=== PATIENT | female | born 1945 | race Caucasian/White ===

== ENCOUNTER 2019-09-16 07:55 | Day surgery (SDC) | payer MEDICARE, OTHER ==
[~2019-09-16] VITALS: Ht 172.7 cm; Wt 96.1 kg
[2019-09-16] MEDS ORDERED: ATOR20 PO (08:28)
[2019-09-16] MEDS ORDERED: CYCL10 PO ×2 (08:29)
[2019-09-16] MEDS ORDERED: Prozac20 MG PO (08:30)
[2019-09-16] MEDS ORDERED: FURO20 PO (08:31)
[2019-09-16] MEDS ORDERED: Flovent 44 mc10.6 GM INH (08:31)
[2019-09-16] MEDS ORDERED: KLOR-CON M1010 MEQ PO (08:32)
[2019-09-16] MEDS ORDERED: MELO7.5 PO (08:32)
[2019-09-16] MEDS ORDERED: TRAZ50 PO (08:33)
[2019-09-16] MEDS ORDERED: SOLI5 PO (08:33)
[2019-09-16] MEDS ORDERED: GABA100 PO (08:34)
[2019-09-16] MEDS ORDERED: OMEPRAZOLE20 MG PO (08:34)
== END 2019-09-16 09:30 | disposition home or self-care (01) ==
LOC: ORSCSDS 07:55
PROVIDERS: Ophthalmology
PROC: 08RJ3JZ Replacement of Right Lens with Synthetic Substitute, Percutaneous Approach (ICD-10-PCS; principal; 2019-09-16 09:00)
DX: H25.11 Age-related nuclear cataract, right eye (principal); E66.9 Obesity, unspecified; Z68.32 Body mass index [BMI] 32.0-32.9, adult; Z87.891 Personal history of nicotine dependence; Z79.899 Other long term (current) drug therapy
CPT/HCPCS: J2001; J2250; J3010; J3301; J7040; V2632

== ENCOUNTER → 2019-11-24 | Outpatient (CLI) | payer MEDICARE, OTHER ==
[~2019-11-24] MED LIST: ATOR20 PO; CYCL10 PO; FURO20 PO; Flovent 44 mc10.6 GM INH; GABA100 PO; KLOR-CON M1010 MEQ PO; MELO7.5 PO; OMEPRAZOLE20 MG PO; Prozac20 MG PO; SOLI5 PO; TRAZ50 PO
== END ==
LOC: LAB EV 15:43 → LAB SHORT 15:43
DX: R30.9 Painful micturition, unspecified (principal)
CPT/HCPCS: 87086

== ENCOUNTER → 2019-12-21 | Outpatient (CLI) | payer MEDICARE, OTHER | END | disposition home or self-care (01) | LOC: LAB EV 15:30 → LAB SHORT 15:30 | DX: R30.9 Painful micturition, unspecified (principal) | CPT/HCPCS: 87077; 87086; 87186 ==

== ENCOUNTER → 2020-01-06 | Outpatient (CLI) | payer MEDICARE, OTHER | END | disposition home or self-care (01) | LOC: LAB SHORT 13:11 → PLD 13:11 | DX: D48.5 Neoplasm of uncertain behavior of skin (principal); L82.1 Other seborrheic keratosis | CPT/HCPCS: 88305 ==

== ENCOUNTER → 2020-02-22 | Outpatient (CLI) | payer MEDICARE, OTHER | END | disposition home or self-care (01) | LOC: PLD 13:45 → LAB SHORT 13:45 | DX: L98.8 Other specified disorders of the skin and subcutaneous tissue (principal) | CPT/HCPCS: 88304 ==

== ENCOUNTER → 2020-05-17 | Outpatient (CLI) | payer MEDICARE, OTHER | LOC: LAB EV 09:50 → LAB SHORT 09:50 | DX: R30.9 Painful micturition, unspecified (principal) | CPT/HCPCS: 87086 ==

== ENCOUNTER 2020-06-14 11:44 | Day surgery (SDC) | payer MEDICARE, OTHER ==
[~2020-06-14] VITALS: Ht 172.7 cm; Wt 90.9 kg
[~2020-06-14 11:44] MED LIST changes: +ACET500 PO; +ATOR80 PO; +Aspir 8181 MG PO; +B-121000 MC7 PO; +CONEST.625 VAG; +CYCL0.05OP BOTHEYES; +GABA300 PO; +LATANOPROST 0.7.5 ML BOTHEYES; +LOSA50 PO; +POTA10T PO; +Vesicare10 MG PO; +Vitamin D2000 UNIT PO
== END 2020-06-14 14:15 | disposition home or self-care (01) ==
LOC: ORSCSDS 11:44
PROVIDERS: Surgery
PROC: 0DJD8ZZ Inspection of Lower Intestinal Tract, Via Natural or Artificial Opening Endoscopic (ICD-10-PCS; principal; 2020-06-14 13:00)
DX: Z85.048 Personal history of other malignant neoplasm of rectum, rectosigmoid junction, and anus (principal); Z93.3 Colostomy status; I10 Essential (primary) hypertension; K21.9 Gastro-esophageal reflux disease without esophagitis; N18.9 Chronic kidney disease, unspecified; Z79.899 Other long term (current) drug therapy; Z79.82 Long term (current) use of aspirin
CPT/HCPCS: J2704; J7120

== ENCOUNTER 2021-01-12 10:57 | Day surgery (SDC) | payer MEDICARE, OTHER ==
[~2021-01-12] VITALS: Ht 172.7 cm; Wt 91.2 kg
[~2021-01-12 10:57] MED LIST changes: +ALBU90OI INH; +Aspirin EC81 MG PO; +CONEST.625; +FAMO20 PO; +FLUOXETINE HCL20 M1 PO; +Flonase 0.05% N16 GM; +MELA3 PO; +VITAMIN D325 MC3 PO; +XALATAN2.5 ML BOTHEYES; +ZYRTEC10 M2 PO
== END 2021-01-12 12:27 | disposition home or self-care (01) ==
LOC: ORSCSDS 10:57
PROVIDERS: Surgery
PROC: 0DB98ZX Excision of Duodenum, Via Natural or Artificial Opening Endoscopic, Diagnostic (ICD-10-PCS; principal; 2021-01-12 12:00)
PROC: 0DB58ZX Excision of Esophagus, Via Natural or Artificial Opening Endoscopic, Diagnostic (ICD-10-PCS; principal; 2021-01-12 12:00)
PROC: 0DB68ZX Excision of Stomach, Via Natural or Artificial Opening Endoscopic, Diagnostic (ICD-10-PCS; principal; 2021-01-12 12:00)
DX: R13.10 Dysphagia, unspecified (principal); I10 Essential (primary) hypertension; I25.10 Atherosclerotic heart disease of native coronary artery without angina pectoris; J44.9 Chronic obstructive pulmonary disease, unspecified; K21.9 Gastro-esophageal reflux disease without esophagitis; E66.9 Obesity, unspecified; Z68.30 Body mass index [BMI] 30.0-30.9, adult; F41.8 Other specified anxiety disorders; E78.5 Hyperlipidemia, unspecified; F32.9 Major depressive disorder, single episode, unspecified; Z87.891 Personal history of nicotine dependence; Z79.82 Long term (current) use of aspirin; Z79.899 Other long term (current) drug therapy
CPT/HCPCS: 88305; 88342; J2704; J3010

== ENCOUNTER → 2021-02-01 | Outpatient (CLI) | payer MEDICARE, OTHER | END | disposition home or self-care (01) | LOC: LAB 12:50 → LAB SHORT 12:50 | DX: M54.5 Low back pain (principal); R30.0 Dysuria; R35.0 Frequency of micturition | CPT/HCPCS: 87077; 87086; 87186 ==

== ENCOUNTER → 2021-10-26 | Outpatient (CLI) | payer MEDICARE, OTHER | END | disposition home or self-care (01) | LOC: LAB SHORT 16:24 → LAB 16:24 | DX: R30.9 Painful micturition, unspecified (principal) | CPT/HCPCS: 87086 ==

== ENCOUNTER → 2022-01-09 | Outpatient (CLI) | payer MEDICARE, OTHER | END | disposition home or self-care (01) | LOC: LAB SHORT 08:50 → PLD 08:50 → LAB 08:50 | DX: D48.5 Neoplasm of uncertain behavior of skin (principal) | CPT/HCPCS: 88305 ==

== ENCOUNTER → 2022-05-15 | Outpatient (CLI) | payer MEDICARE, OTHER | END | disposition home or self-care (01) | LOC: LAB 16:27 → LAB SHORT 16:27 | DX: R30.0 Dysuria (principal) | CPT/HCPCS: 87086 ==